=== PATIENT | female | born 1965 | race Caucasian/White ===

== ENCOUNTER 2020-08-19 20:01 | Emergency (ER) | payer OTHER, SELFPAY ==
[~2020-08-19] VITALS: Ht 170.2 cm; Wt 72.6 kg
[2020-08-19 20:03] VITALS: Ht 170.2 cm; Wt 72.6 kg
[2020-08-19 20:35] VITALS: BP 136/90
== END 2020-08-19 20:35 | disposition home or self-care (01) ==
LOC: ED 20:01
DX: U07.1 COVID-19 (principal)
CPT/HCPCS: U0003